=== PATIENT | female | born 1995 | race Caucasian/White ===

== ENCOUNTER 2019-01-11 23:13 | Emergency (ER) | payer BC, SELFPAY ==
--- NOTE | 2019-01-11 23:23 | ED.GENADUL_ITS ---
Discharge Plan Disposition Patient Disposition: HOME Condition: Good Discharge Details Chief Complaint: Headache Clinical Impression: Headache ED Provider: Stephan Beatty Home Meds and New Rx's Prescriptions: No Action No Known Home Meds RF: 0 Discharge Instructions Instructions: General Headache (ED) Additional Instructions: We will refer you to primary care and neurology as you are new to the area. Care management will help with establishing primary care. Return to ED for fever, new/worsening headaches, neurologic changes. Referrals: Care Management [Provider Group] [facility] [Provider Group] Medical Decision Making Patient presenting with headache with history of same. New to the area with no primary care currently. Also denies any prophylactic medication for headaches as she has tried everything in the past with no results. Usually able to go to sleep and wakes up in the morning with less of a headache. Tonight unable to sleep. She is neurologically intact. We will establish IV and give fluids, medications and reevaluate. Patient is doing much better. Will finish the fluids and then discharge. Will have care management help in securing primary care for patient. Will refer to neurology for management of chronic headaches. Return to ED for new or worsening headaches, fever, neurologic changes. HPI General Mode of arrival: ambulatory . Date/Time Provider Initiated Documentation: 01/11/19 23:23 . Limitations to Documentation: no limitations . Information obtained by: patient and RN notes reviewed . HPI Narrative: Patient presents to ED with complaint of headache. Patient reports history of headaches. She has been worked up in [place] where she is from as well as the [facility]. Currently, on no medications and told she has nummular headaches. Reports this headache a little bit different, will not go away, is causing nausea. She has mild photophobia. She feels like it got better once she left her apartment to come here though it is still pretty significant. She denies any vomiting. She denies fever or URI symptoms. There are no neurologic changes and she denies numbness, weakness, vision change, speech change. Related Data Home Medications Medication Instructions Recorded Confirmed Unknown [No Known Home Meds] 01/11/19 01/11/19 Allergies Allergy/AdvReac Type Severity Reaction Status Date / Time Penicillins Allergy Verified 01/11/19 23:40 Review of Systems Narrative: As documented in HPI otherwise negative as below. Const: no fever, chills, weakness Resp: no cough, SOB, pleuritic pain CV: no CP, diaphoresis, edema, syncope GI: nausea; no abdominal pain, vomiting, diarrhea Neuro: headache, no numbness, focal weakness, confusion PFSH Medical History Chronic headaches (Chronic) Surgical History S/P ACL repair (Acute) Social History (Updated 01/11/19 @ 23:49 by Stephan Beatty MD) Housing: apartment Additional Social history: new to [facility]; from [place] Exam Narrative Exam Narrative: Vitals: Afebrile. Normal vitals and pulse ox. Const: WDWN female in NAD. HEENT: NC/AT. Normal facial exam. TMs clear. Eyes: Normal conjunctiva and sclera. PERRL and EOMI. Neck: Supple. Trachea midline. Lungs: Normal respiratory effort. Lungs are clear. Cor: RRR without murmur/gallop. Neuro: A+O x 3. CN II - XII grossly in tact. Normal speech, mentation, strength, sensation, gait.
[2019-01-11 23:28] VITALS: BP 130/82; PULSE 69; RESP 16; TEMP 36.3; O2SAT 99
[2019-01-11 23:29] VITALS: BP 130/82; PULSE 62; O2SAT 96
[2019-01-11 23:30] VITALS: BP 123/106; PULSE 89; O2SAT 97
[2019-01-12] MEDS: Ketorolac 30 MG/ML VIAL IVP (00:22)
[2019-01-12 00:23] VITALS: TEMP 36.3
[2019-01-12] MEDS: Metoclopramide 10 MG/2 ML VIAL IVP (00:23)
[2019-01-12 00:24] VITALS: TEMP 36.3
[2019-01-12] MEDS: diphenhydrAMINE 50 MG/ML VIAL 25 MG IVP (00:24)
[2019-01-12 01:44] VITALS: BP 90/65; PULSE 68; RESP 14; TEMP 36.9; O2SAT 99
== END 2019-01-12 01:29 | disposition home or self-care (01) ==
LOC: ER 01-12 01:33
PROVIDERS: Emergency Provider Emergency Medicine; PCP Nurse Practitioner Family
DX: R51 Headache (principal)
CPT/HCPCS: 96361; 96374; 96375; 99284; J1200; J1885; J2765; J3490

== ENCOUNTER 2019-03-05 12:44 | Outpatient (REF) | payer BC, SELFPAY ==
--- NOTE | 2019-03-05 11:45 | PAPFT_PTH ---
PATIENT: JUDAH SCHAFFER LOC: [facility] U#:[id number] AGE/SX: 23/F ROOM: RE03/05/[address]: ARUN Nava : 1995 BED: DIS: 03/05/2019 SPEC #: [id number] RECD: 03/05/19 13:14 STATUS: PIPER REQ #: [id number] JESSICA: 03/05/19 11:[address]: Sandrita Crowley DEPT: [facility] Cytology RECD BY: Alla Block ENTERED: 03/05/19 13:14 SP TYPE: PAPFT OTHR DR: None Tissues: 1 - CX/ENDOCX FOR PAP SMEARS Procedures: PAP THIN PREP/[facility] Screening Comments: [id number]
[2019-03-08 14:44] LABS: Chlamydia Result Negative (Negative); GC Result Negative (Negative)
== END 2019-03-05 13:04 ==
LOC: LBN 12:44
PROVIDERS: Visit Provider Nurse Practitioner Family
DX: Z11.3 Encounter for screening for infections with a predominantly sexual mode of transmission (principal); Z12.4 Encounter for screening for malignant neoplasm of cervix
CPT/HCPCS: 87491; 87591; 88142

== ENCOUNTER 2019-03-19 12:38 | Outpatient (REF) | payer BC, SELFPAY ==
[2019-03-19 20:07] LABS: Abs Immature Grans 0.01 k/cumm (0.0-0.09); Absolute Basophil Count 0.06 k/cumm (0.0-0.2); Absolute Eosinophil Count 0.16 k/cumm (0.0-0.7); Absolute Lymphocyte Count 2.54 k/cumm (1.2-3.4); Absolute Monocyte Count 0.55 k/cumm (0.11-0.7); Absolute Neutrophil Count 4.28 k/cumm (1.2-6.7); Basophils % 0.8; Eosinophils % 2.1; HCT 45.1 % (36.0-46.0); HGB 14.8 g/dL (12.0-15.5); Immature Grans % 0.1 %; Lymphocytes % 33.4; Mean Corp. HGB Concentration 32.8 g/dL (32.0-36.0); Mean Corpuscular Hemoglobin 30.5 pg (27.0-33.0); Mean Corpuscular Volume 92.8 fL (80-95); Mean Platelet Volume 12.9 fL (8.0-11.0); Monocytes % 7.2; Neutrophils % 56.4; Platelet Count 245 x1000/uL (130-400); RBC 4.86 m/cumm (4.00-5.20); RBC Distribution Width 12.6 % (11.7-14.6)
[2019-03-19 20:11] LABS: Anion Gap 7.4 mmol/L (3-11); BUN 12 mg/dL (7-18); CO2 28.6 mmol/L (21.0-32.0); CREATININE 0.81 mg/dL (0.55-1.02); Calcium 9.3 mg/dL (8.5-10.1); Chloride 104 mmol/L (98-107); Glucose 80 mg/dL (74-106); Potassium 4.4 mmol/L (3.5-5.1); Sodium 140 mmol/L (136-145)
[2019-03-22 10:20] LABS: HBs Antibody, Quant 8.5 mIU/mL (See Note); Hepatitis B Surface Ab Negative (See Note); Hepatitis B Surface Ag Negative (Negative)
[2019-03-22 11:10] LABS: HIV-1/2 Ag & Ab Screen Negative (Negative)
[2019-03-22 11:32] LABS: Hepatitis C Ab w Rflx HCV PCR Negative (Negative)
[2019-03-23 16:22] LABS: G-6-PD, Qn, RBC 11.1 U/g Hb (8.8 - 13.4)
== END 2019-03-19 12:58 ==
LOC: NCHCN 12:38
PROVIDERS: Visit Provider Nurse Practitioner Family
DX: Z00.00 Encounter for general adult medical examination without abnormal findings (principal); R51 Headache; Z11.59 Encounter for screening for other viral diseases; Z11.4 Encounter for screening for human immunodeficiency virus [HIV]
CPT/HCPCS: 80048; 86706; 86803; 87340; 87389; 82955; 85025

== ENCOUNTER 2019-08-18 14:40 | Outpatient (CLI) | payer BC, SELFPAY ==
--- NOTE | 2019-08-18 14:15 | DI.RAD_ITS ---
EXAM: XR KNEE RT 3V AP,LAT,SERA CLINICAL HISTORY: RIGHT KNEE PAIN TECHNIQUE: COMPARISON: No exams were available for comparison FINDINGS: Three views were obtained. Note is made of a prior ACL reconstruction with suture anchor in the dist al femur. There may be slight narrowing of the medial tibiofemoral cartilaginous joint space. Other delarosa cartilaginous joint spaces appear well maintained. No bony abnormality seen. IMPRESSION:
== END 2019-08-18 15:00 ==
PROVIDERS: Visit Provider Student in an Organized Health Care Education/Training Program
DX: M25.561 Pain in right knee (principal); Z98.890 Other specified postprocedural states
CPT/HCPCS: 73562

== ENCOUNTER 2019-08-23 07:17 | Outpatient (CLI) | payer BC, SELFPAY ==
--- NOTE | 2019-08-23 08:00 | DI.MRI_ITS ---
EXAM: MR LOWER JOINT RT WO CLINICAL HISTORY: ACL-recon failure, tunnel dilation,effusion, derangement/injury, laxity. TECHNIQUE: Multiplanar multisequence MRI was performed. COMPARISON: CR XR KNEE RT 3V AP,LAT,SERA from 08/18/2019 FINDINGS: BONES: There is no fracture or contusion pattern. JOINTS: Articular cartilage is unremarkable. A small joint effusion is present. TENDONS: Extensor mechanism: Unremarkable. Medial retinaculum: Unremarkable. Lateral retinaculum: Unremarkable. Popliteus: Unremarkable. MUSCLES: Unremarkable. MENISCI: There is hyperintense signal at the junction of the posterior horn in body of the medial men iscus. This may represent an acute tear. Old tear versus postsurgical change cannot be excluded. P lease correlate clinically. There is hyperintense signal seen in the posterior horn of the lateral m eniscus suspicious for tear. SOFT TISSUES: Unremarkable. LIGAMENTS: Anterior Cruciate: There is an anterior cruciate ligament repair. There does appear to be some bulgi ng of the fibers anteriorly and laterally. This may represent a partial tear. Posterior Cruciate: Unremarkable. Medial Collateral:Unremarkable. Lateral Collateral: Unremarkable. OTHER: IMPRESSION: 1. Status post ACL repair. There is some bulging of the ACL fibers anteriorly and laterally. A part ial tear cannot be excluded. 2. Hyperintense signal seen in both the medial and lateral menisci. Differential considerations incl ude acute tear versus old tear/postsurgical change. Please correlate clinically. 3. Small joint effusion. DATA REPOSITORY:
== END 2019-08-23 07:37 ==
PROVIDERS: Visit Provider Student in an Organized Health Care Education/Training Program
DX: M25.561 Pain in right knee (principal); M25.461 Effusion, right knee; S83.241A Other tear of medial meniscus, current injury, right knee, initial encounter; S83.281A Other tear of lateral meniscus, current injury, right knee, initial encounter; Z98.890 Other specified postprocedural states
CPT/HCPCS: 73721